=== PATIENT | male | born 1945 | race Caucasian/White ===

== ENCOUNTER 2021-04-24 12:41 | Emergency (ER) | payer MEDICARE, SELFPAY ==
--- NOTE | 2021-04-24 13:00 | XR_ITS ---
PROCEDURE: XR LUMBAR SPINE 2-3V CLINICAL INDICATION: pain COMPARISON: No exams were available for comparison FINDINGS: There is minimal lumbar curvature convex left. Degenerative disc disease is present at L4-5 and L5-S1. No acute fracture or dislocation. Mild facet arthritic changes are present at L3-L4 and L5. There is some sclerosis involving the femoral heads on both sides right greater than left raising the suspicion of avascular necrosis. Nonemergent MRI may provide further evaluation. IMPRESSION: 1. Mild degenerative changes of the lumbar spine with degenerative disc disease and facet arthritic change. 2. 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 Nonemergent MRI of the hips may provide confirmation. Dictated by: Tk Bond MD 04/24/2021 13:45 Tk Bond MD in [place] 04/24/2021 13:45
[2021-04-24 13:16] VITALS: BP 127/89; PULSE 73; RESP 16; TEMP 36.9; O2SAT 98; BMI 30.2
--- NOTE | 2021-04-24 13:38 | HMH.EDUTC ---
[facility] [place] Clinical Impression: Low back pain Qualifiers: Chronicity: unspecified Back pain laterality: unspecified Sciatica presence: unspecified whether sciatica present Qualified Code(s): M54.5 - Low back pain Disposition: Home, Self-Care Condition on Discharge: Good Instructions: Low Back Pain, DI for Low Back Pain, DI for Chronic Pain -- Adult, Methocarbamol, Etodolac Additional Instructions: *Etodolac every 8 hours with meal as needed for pain/inflammation *Not additional anti-inflammatory like Ibuprofen, motrin, aleve, advil with the above amount of Etodolac. You can still take Tylenol every 4 hours as needed if you need something else for pain *Ice 20 minutes every 2 hours for the first 48 hours after the initial injury followed by moist heat every 20 minutes 3-4 times a day to affected area *Muscle relaxer every 12 hours as needed for muscle spasms but remember, it WILL cause drowsiness You cannot take it and drive, operate machinery or care for small children. *Keep this area active, no movement leads to more stiffness, However take it easy and avoid heavy lifting pushing or pulling *Follow up with you family doctor if no improvement for further treatment Call and make appointment with your Family Doctor FOllow up with your Family Doctor for further evaluation and treatment if no improvement Straight to ER if any loss of control of bowel or bladder or any worsening of symptoms Prescriptions: Etodolac 200 mg PO Q8HP PRN #15 cap PRN Reason: Moderate Pain Transmission Status: Received by [id number] methocarbamoL [Methocarbamol 500mg Tablet] 500 mg PO BID PRN #10 tab PRN Reason: Muscle Spasm Transmission Status: Received by [id number] Referrals: Hari Moore [Primary Care Provider] - As needed Time of Disposition: 14:11 Medical Decision Making - Eric Inquiry Pt receiving controlled substance: No Eric was queried for this patient: No Vital Signs: 04/24/21 13:16 04/24/21 13:59 Temperature 98.5 F 98 F Temperature Source Oral Pulse Rate 71 Pulse Rate [Right] 73 Respiratory Rate 16 14 Blood Pressure 133/90 Blood Pressure [Right Arm] 127/89 Blood Pressure Mean [Right Arm] 101 02 Sat by Pulse Oximetry 98 - Radiology Data #1 Image(s): L-Spine Image Reviewed: Yes I have reviewed radiologist's interpretation 1. Mild degenerative changes of the lumbar spine with degenerative disc disease and facet arthritic change. 2. 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 Nonemergent MRI of the hips may provide confirmation. - Physician Consults Physician Consulted: Dr Yee Time: 14:04 Reason -: Other Comment/Response: Spoke with Dr Yee covering for Dr Moore about the findings on xray and recommendation for nonemergent MRI and discussed patient complaints today and discussed medication Recommended not to give Prednisone at this time may give Etodolac 200mg TID and Methocarbamol 500mg BID and have patient call and make appointment for further evaluation and treatment [facility] [place] - General Stated complaint: back/leg pain Time Seen by Provider: 04/24/21 13:39 Mode of Arrival: Ambulatory Source of Information: Patient Limitations: No Limitations Description of Symptoms (Recalled from Triage Doc. by RN): severe lower back pain and bilateral leg pain. HEENT Symptoms (Recalled from RN notes): No Resp Symptoms (Recalled from RN notes): No Skin Symptoms (Recalled from RN notes): No MS Symptoms (Recalled from RN notes): Yes (lower back pain radiating into both legs) Functional Status (Recalled from RN notes): na - History of Present Illness Provider Complaint: Patient state that about 4 days ago he was getting up from the dinner table and started having pain in his lower back area that radiates down both legs State he has continued to have pain in his lower back and radiating down buttock area Denies loss of control of bowel or bladder State that his PCP is out of town s
[2021-04-24 13:59] VITALS: BP 133/90; PULSE 71; RESP 14; TEMP 36.6
== END 2021-04-24 14:14 | disposition home or self-care (01) ==
PROVIDERS: Emergency Provider Nurse Practitioner; PCP Family Medicine
DX: M54.5 Low back pain (principal); M79.604 Pain in right leg; M79.605 Pain in left leg; Z88.1 Allergy status to other antibiotic agents
CPT/HCPCS: G0463; 72100; 99202

== ENCOUNTER 2021-07-26 15:33 | Emergency (ER) | payer MEDICARE, SELFPAY ==
--- NOTE | 2021-07-26 18:46 | PC.NURSE ---
pt left without getting covid test
[2021-07-26 18:47] VITALS: BP 0/0; PULSE 0; RESP 0; TEMP -17.7; TEMP 0
== END 2021-07-26 18:47 | disposition left against medical advice (07) ==
LOC: UTC 15:36
PROVIDERS: Emergency Provider Nurse Practitioner Family; PCP Family Medicine
DX: Z53.21 Procedure and treatment not carried out due to patient leaving prior to being seen by health care provider (principal)

== ENCOUNTER → 2021-09-10 12:18 | Outpatient (CLI) | payer MEDICARE, SELFPAY ==
[2021-09-10 13:45] LABS: Prostate Specific Ag Screen 4.2 ng/ml (0.0-4.0)
== END ==
PROVIDERS: Visit Provider Urology
DX: Z12.5 Encounter for screening for malignant neoplasm of prostate (principal)
CPT/HCPCS: 36415; G0103

== ENCOUNTER 2022-05-15 12:25 | Emergency (ER) | payer MEDICARE, SELFPAY ==
[2022-05-15 12:40] VITALS: BP 132/90; PULSE 96; RESP 16; TEMP 36.7; O2SAT 98; BMI 30.2
--- NOTE | 2022-05-15 12:40 | PC.NURSE ---
BRYAN ROJO at
--- NOTE | 2022-05-15 12:43 | XR_ITS ---
FINAL REPORT CLINICAL HISTORY: cough, wesakness FINDINGS: A single portable view of the chest was obtained. The heart size and pulmonary vascularity are within normal limits. The mediastinum is within normal limits. There is mild bibasilar atelectasis or scarring. The bony thorax is intact. IMPRESSION: Mild bibasilar atelectasis scarring. Reviewed, Interpreted and Dictated by Leonides Lawrence III, MD Transcribed by Griselda Avendaño Authenticated and [facility]
--- NOTE | 2022-05-15 12:44 | HMH.EDGENADL ---
ED Disposition Clinical Impression: Dizzy spells Disposition: Home, Self-Care Condition on Discharge: Good Instructions: Dizziness, Nonvertigo Additional Instructions: follow up PCP, return here for worse Referrals: Hari Moore [Primary Care Provider] - - Critical Care Critical Care Time: No Attestation: On 05/15/22, the high probability of a clinically significant, sudden or life threatening deterioration of the following system(s) required my full and direct attention, intervention and personal management. The time I documented below is in addition to time spent performing reported procedures but includes the following listed in this critical care notation. Medical Decision Making - Medical Records Medical records reviewed: Yes: I reviewed the patient's medical records. - Eric Inquiry Pt receiving controlled substance: No Vital Signs: 05/15/22 12:40 05/15/22 13:05 Temperature 98.1 F Temperature Source Oral Pulse Rate 84 Pulse Rate [Left Radial] 96 H Respiratory Rate 16 Blood Pressure 126/75 Blood Pressure [Right Arm] 132/90 Blood Pressure Mean 84 Blood Pressure Mean [Right Arm] 104 02 Sat by Pulse Oximetry 98 98 Oxygen Delivery Method Room Air - Lab Data Lab Results 05/15/22 12:50: WBC 7.4, RBC 4.86, Hgb 14.6, Hct 43.1, MCV 88.8, MCH 30.1, MCHC 33.9, RDW 12.8, Plt Count 207, MPV 6.9 L, Neut % (Auto) 64.7, Lymph % (Auto) 28.6, [place] % (Auto) 4.6, Eos % (Auto) 1.4, Baso % (Auto) 0.7, Neut # (Auto) 4.8, Lymph # (Auto) 2.1, [place] # (Auto) 0.3, Eos # (Auto) 0.1, Baso # (Auto) 0.1 05/15/22 12:50: Sodium 137, Potassium 4.0, Chloride 101, Carbon Dioxide 30, Anion Gap 10.0, BUN 13, Creatinine 1.00, Estimated Creat Clear 85, Estimated GFR 73, Est GFR ( Amer) 88, Glucose 140 H, Calcium 9.9, Total Bilirubin 0.9, AST 25, ALT 18, Alkaline Phosphatase 88, Total Protein 7.5, Albumin 4.6, Globulin 2.9, Albumin/Globulin Ratio 1.6 Result diagrams: 05/15/22 12:50 05/15/22 12:50 Orders (Tests/Meds): ORDERS Category Date Time Status Chest XR -- portable [XR chest portable] Stat Exams 05/15/22 12:43 Taken ECG Request by /Lester Stat Y 05/15/22 12:43 Stop Req - ECG Data Tracing #1 I reviewed this ECG and interpreted as documented below: ekg by me nsr, qrs nml, no st elev - Reevaluation(s) Time: 13:34 (reeval, appears well, neuro intact, ok with plan to f/u pcp) General Adult HPI - General Stated complaint: Dizziness;Weakness in legs;Loss of balance Time Seen by Provider: 05/15/22 12:44 - History of Present Illness HPI narrative: general weakness, dizzy, recent uri symptoms Onset (ago): day(s) Radiation: non-radiation Severity: moderate Consistency: intermittent Relieving factors: rest Exacerbating factors: movement Associated symptoms: denies other symptoms - Related Data Home Medications Medication Instructions Recorded Confirmed albuterol sulfate 90 mcg/actuation 2 puff INHALATION Q6H PRN 09/10/21 10/31/21 aerosol inhaler aspirin 81 mg chewable tablet 81 mg PO DAILY 09/10/21 10/31/21 atorvastatin 20 mg tablet 20 mg PO DAILY 09/10/21 10/31/21 diphenhydramine 25 each PO 09/10/21 10/31/21 mg-phenylephrine 10 mg-acetaminophen 650 mg packet finasteride 5 mg tablet 5 mg PO DAILY 09/10/21 10/31/21 gabapentin 800 mg tablet 800 mg PO DAILY 09/10/21 10/31/21 lancets 28 gauge See Rx Instructions .ROUTE 09/10/21 10/31/21 lidocaine 5 % topical patch 1 patch TOPICAL DAILY 09/10/21 10/31/21 losartan 50 mg tablet 50 mg PO DAILY 09/10/21 10/31/21 metformin 1,000 mg tablet 1,000 mg PO DAILY 09/10/21 10/31/21 omeprazole 20 mg capsule,delayed 20 mg PO DAILY 09/10/21 10/31/21 release pioglitazone 30 mg tablet 30 mg PO DAILY 09/10/21 10/31/21 semaglutide 0.25 mg SQ WEEKLY 09/10/21 10/31/21 tamsulosin 0.4 mg capsule 0.4 mg PO DAILY 09/10/21 10/31/21 Previous Rx's Medication Instructions Recorded methocarbamoL [Methocarbamol 500mg 500 mg PO BID PRN #10
--- NOTE | 2022-05-15 12:50 | ECG_ITS ---
APPROVED REPORT Exam: Resting ECG HR:89 bpm ECG Measurements Heart Rate 89 AXES ME 190 P 68 QRSd 85 QRS 83 QT 368 T 62 QTc 415 Conclusion SINUS RHYTHM NORMAL ECG UNCONFIRMED REPORT Electronically signed by : Lencho Cancino MD 05/16/2022 17:32:07
[2022-05-15 13:02] LABS: Chloride 101 mmol/L (98-107); Sodium 137 mmol/L (136-145)
[2022-05-15 13:04] LABS: Blood Urea Nitrogen 13 mg/dl (9-20); Creatinine Clearance Estimated 85 mL/min (50-200); Estimated Glomerular Filt Rate 73 ml/min (>60); GFR (African American) 88 ML/MIN (>60)
[2022-05-15 13:05] VITALS: BP 126/75; PULSE 84; O2SAT 98
[2022-05-15 13:05] LABS: Alanine Aminotransferase 18 U/L (12-78); Albumin Level 4.6 g/dl (3.5-5.0); Albumin/Globulin Ratio 1.6 (1.1-1.8); Alkaline Phosphatase 88 U/L (38-126); Aspartate Amino Transferase 25 U/L (17-59); Bilirubin,Total 0.9 mg/dl (0.2-1.3); Calcium 9.9 mg/dl (8.4-10.2); Carbon Dioxide 30 mmol/L (22.0-30.0); Globulin 2.9 g/dL (1.3-3.2); Glucose 140 mg/dl (74-100); Total Protein,Serum 7.5 g/dl (6.3-8.2)
[2022-05-15 13:07] LABS: Basophils # 0.1 K/mm3 (0-0.2); Basophils % 0.7 % (0.1-2.0); Eosinophils # 0.1 K/mm3 (0.0-0.4); Eosinophils % 1.4 % (0.1-12.0); Hematocrit 43.1 % (42.0-52.0); Hemoglobin 14.6 g/dL (14.1-18.0); Lymphocytes # 2.1 K/mm3 (0.7-4.5); Lymphocytes % 28.6 % (10-50); Mean Corpuscular HGB Conc 33.9 g/dL (31.8-35.4); Mean Corpuscular Hemoglobin 30.1 pg (27.0-31.2); Mean Corpuscular Volume 88.8 fl (80-94); Mean Platelet Volume 6.9 fl (7.4-10.4); Monocytes # 0.3 K/mm3 (0.1-1.0); Monocytes % 4.6 % (1.7-9.3); Neutrophils # 4.8 K/mm3 (1.8-7.8); Neutrophils % 64.7 % (37.0-80.0); Platelet Count 207 K/mm3 (142-424); Red Blood Count 4.86 M/mm3 (4.60-6.20); Red Cell Distribution Width 12.8 % (11.5-17.5); White Blood Count 7.4 K/mm3 (4.8-10.8)
--- NOTE | 2022-05-15 13:32 | PC.NURSE ---
ER MD at speaking with patient regarding POC
[2022-05-15 13:41] VITALS: BP 139/83; PULSE 83; RESP 17; TEMP 36.7; O2SAT 99
== END 2022-05-15 13:42 | disposition home or self-care (01) ==
PROVIDERS: Emergency Provider Emergency Medicine; PCP Family Medicine
DX: R42 Dizziness and giddiness (principal); R53.1 Weakness; Z79.82 Long term (current) use of aspirin; Z79.899 Other long term (current) drug therapy; Z79.84 Long term (current) use of oral hypoglycemic drugs; N40.0 Benign prostatic hyperplasia without lower urinary tract symptoms; J44.9 Chronic obstructive pulmonary disease, unspecified; E11.9 Type 2 diabetes mellitus without complications; E78.5 Hyperlipidemia, unspecified; I10 Essential (primary) hypertension; M19.90 Unspecified osteoarthritis, unspecified site; M79.7 Fibromyalgia
CPT/HCPCS: 71045; 80053; 85025; 93005; 99283